=== PATIENT | female | born 1980 ===

== ENCOUNTER 2016-09-21 02:50 | Emergency (ER) | payer SELFPAY ==
[2016-09-21 03:03] VITALS: BMI 25.0
[2016-09-21 03:07] VITALS: RESP 18
--- NOTE | 2016-09-21 03:33 | ED PDOC ---
Arrival/HPI - General Historian: Patient, Spouse - History of Present Illness Time/Duration: Prior to Arrival Symptom Course: Unchanged <Liam Du - Last Filed: 09/21/16 05:04> <Wil Scott - Last Filed: 09/21/16 05:25> - General Chief Complaint: Allergic Reaction Time Seen by Provider: 09/21/16 03:16 - Critical Care Narrative Critical Care (Text): 09/21/16 03:30 36 y/o female presents with complaints of diffuse itching and hives to anterior chest and all extremities. Patient was seen here on 09/20 for the same complaints and discharged with instructions prescriptions including Medrol Dose collin, benadryl and Pepcid. 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 She apparently woke up from sleep tonight with diffuse itching and feelings of throat discomfort with some difficulty swallowing. Patient denies any precipitating exposure to novel detergents, linens, chemicals. She denies shortness of breath, n/v/d, fever or chills. (Liam Du) Past Medical History - Provider Review Nursing Documentation Reviewed: Yes - Infectious Disease Hx of Infectious Diseases: None - Psychiatric Hx Substance Use: No - Anesthesia Hx Anesthesia: No Hx Anesthesia Reactions: No Hx Malignant Hyperthermia: No <Liam Du - Last Filed: 09/21/16 05:04> Family/Social History - Physician Review Nursing Documentation Reviewed: Yes Family/Social History: Unknown Family HX Smoking Status: Never Smoked Hx Alcohol Use: No Hx Substance Use: No <Liam Du - Last Filed: 09/21/16 05:04> Allergies/Home Meds <Liam Du - Last Filed: 09/21/16 05:04> <Wil Scott - Last Filed: 09/21/16 05:25> Allergies/Adverse Reactions: Allergies No Known Allergies Allergy (Verified 09/21/16 03:08) Review of Systems - Physician Review All systems were reviewed & negative as marked: Yes - Review of Systems Constitutional: absent: Fevers, Night Sweats Respiratory: absent: SOB, Cough, Wheezing Cardiovascular: Chest Pain. absent: Palpitations, FLORES Gastrointestinal: absent: Abdominal Pain, Diarrhea, Nausea Musculoskeletal: absent: Back Pain, Neck Pain Skin: Rash, Pruritis. absent: Laceration, Abscess, Ulcer Neurological: absent: Headache, Dizziness, Focal Weakness <Liam Du - Last Filed: 09/21/16 05:04> Physical Exam Vital Signs Reviewed: Yes Temperature: Afebrile Blood Pressure: Normal Pulse: Regular Respiratory Rate: Normal Appearance: Positive for: Well-Appearing Pain Distress: None Mental Status: Positive for: Alert and Oriented X 3 - Systems Exam Head: Present: Atraumatic, Normocephalic Pupils: Present: PERRL Extroacular Muscles: Present: EOMI Conjunctiva: Present: Normal Mouth: Present: Moist Mucous Membranes, Normal Lips, Normal Tounge. No: Drooling Pharnyx: Present: Normal. No: Soft Palate/Uvular Edema Neck: Present: Normal Range of Motion. No: Lymphadenopathy Respiratory/Chest: Present: Clear to Auscultation, Good Air Exchange. No: Wheezes Cardiovascular: Present: Regular Rate and Rhythm, Normal S1, S2 Abdomen: Present: Normal Bowel Sounds. No: Tenderness, Distention Upper Extremity: No: Cyanosis, Edema Lower Extremity: Present: NORMAL PULSES. No: Edema, CALF TENDERNESS Neurological: Present: GCS=15, CN II-XII Intact, Speech Normal Skin: Present: Other (diffuse erythematous raised hives to all extremities, anterior chest ) Psychiatric: Present: Alert, Oriented x 3, Normal Insight, Normal Concentration <Liam Du - Last Filed: 09/21/16 05:04> Vital Signs Temp Pulse Resp BP Pulse Ox 09/21/16 05:17 97.8 F 66 18 123/74 97 09/21/16 03:04 98.1 F 74 18 105/60 100 Medical Decision Making <Liam Du - Last Filed: 09/21/16 05:04> <Wil Scott - Last Filed: 09/21/16 05:25> ED Course and Treatment: 09/21/16 03:36 36 y/o presenting with acute allergic reaction. Patient was seen here on 09/20 with the same complaints. She did not fill her medications which were prescribed at that time and is now returning with diffuse pruritic hives. There is no respiratory distress or wheezing. Patient is stable. - Solumedrol 125mg IV stat - benadryl 50mg stat - reassess - patient and were informed that they should fill prescriptions of Medrol Dose Collin, Pepcid and Benadryl prior to returning home. 09/21/16 05:04 Skin rash resolved after IV Solumedrol and Benadryl. It was stressed to both the patient and her to start taking prescribed medications as soon as possible. Patient is instructed to return if symptoms recur and cannot be controlled with Benadryl and oral Prednisone. (Liam Du) Impression: Pt seen and evaluated with medical reception specialist. Pt presented with diffuse rash and pruritus to anterior chest all 4 extremities. Pt was seen in the ED on 2016 for similar complaint and discharged with allergy medication but did not fill her prescriptions. Aware and agree with HPI, clinical findings, plan, and management. Plan: -- Benadryl -- Solu-medrol -- Reassess and disposition Prior Visits: Notes and results from previous visits were reviewed. (Wil Scott) - Medication Orders Current Medication Orders: Discontinued Medications Diphenhydramine HCl (Benadryl) 50 mg PO STAT STA Stop: 09/21/16 03:39 Last Admin: 09/21/16 04:20 Dose: 50 MG Methylprednisolone (Solu-Medrol) 125 mg IVP STAT STA Stop: 09/21/16 03:41 Last Admin: 09/21/16 03:48 Dose: 125 MG IVP Administration Document 09/21/16 03:48 GMD (Rec: 09/21/16 03:49 GMD [id number]) Charges for Administration # of IVP Administrations 1 - PA / MEDICAL EDUCATION COORDINATOR / Resident Statement ALBERT has reviewed & agrees with the documentation as recorded. ALBERT has examined the patient and agrees with the treatment plan. <Wil Scott - Last Filed: 09/21/16 05:25> Disposition/Present on Arrival - Present on Arrival Any Indicators Present on Arrival: No History of DVT/PE: No History of Uncontrolled Diabetes: No Urinary Catheter: No History of Decub. Ulcer: No History Surgical Site Infection Following: None - Disposition Have Diagnosis and Disposition been Completed?: Yes Disposition Time: 05:10 Patient Plan: Discharge <Liam Du - Last Filed: 09/21/16 05:04> <Wil cSott - Last Filed: 09/21/16 05:25> - Disposition Diagnosis: Allergic reaction, urticaria Disposition: HOME/ ROUTINE Condition: GOOD Discharge Instructions (ExitCare): Urticaria (ED) Print Language: CROATIAN Additional Instructions: Please start taking Medrol Dose Collin today as instructed. Take Benadryl of itching symptoms. Note any allergic triggers. Please see your family physician or [facility] within one week if symptoms persist.
[2016-09-21 05:19] VITALS: BP 123/74; PULSE 66; TEMP 97.8; O2SAT 97
== END 2016-09-21 05:20 | disposition home or self-care (01) ==
LOC: ED 02:50
DX: L50.0 Allergic urticaria (principal)
CPT/HCPCS: 96374; 99284; J2930